=== PATIENT | male | born 1990 | race African-American/Black ===

== ENCOUNTER 2017-01-06 04:42 | Emergency (ER) | payer MEDICAID ==
[~2017-01-06] VITALS: Ht 190.5 cm; Wt 83.9 kg
[2017-01-06 04:45] VITALS: BP 117/84
[2017-01-06] MEDS ORDERED: ALBUTEROL FS 2.5 MG/3 ML VIAL.NEB ONE (04:59)
[2017-01-06] MEDS ORDERED: ALBUTEROL FS 2.5 MG/3 ML VIAL.NEB CONTNEB ONE (05:00)
== END 2017-01-06 05:51 | disposition home or self-care (01) ==
LOC: ER 04:47
DX: R05 Cough (principal)
CPT/HCPCS: 71010; 87804 ×2; 94640; 99285; A4606; Z7610; 87400

== ENCOUNTER 2017-01-10 19:38 | Emergency (ER) | payer MEDICAID ==
[~2017-01-10] VITALS: Ht 190.5 cm; Wt 83.9 kg
[2017-01-10 19:50] VITALS: BP 133/85
[2017-01-10] MEDS ORDERED: IPRATROPIUM NEB FS 0.5 MG/2.5 ML AMPUL.NEB ONE (20:13)
[2017-01-10] MEDS ORDERED: ALBUTEROL FS 2.5 MG/3 ML VIAL.NEB ONE (20:13)
[2017-01-10] MEDS ORDERED: TRAMADOL HCL 50 MG TABLET ONE (20:27)
[2017-01-10] MEDS ORDERED: predniSONE 20 MG TABLET ONE (20:27)
[2017-01-10] MEDS ORDERED: TRAMADOL HCL 50 MG TABLET PO ONE (20:30)
[2017-01-10] MEDS ORDERED: IPRATROPIUM NEB FS 0.5 MG/2.5 ML AMPUL.NEB NEB ONE (20:30)
[2017-01-10] MEDS ORDERED: predniSONE 20 MG TABLET PO ONE (20:30)
[2017-01-10] MEDS ORDERED: ALBUTEROL FS 2.5 MG/3 ML VIAL.NEB NEB ONE (20:30)
== END 2017-01-10 21:00 | disposition home or self-care (01) ==
LOC: ER 19:39
DX: S39.011A Strain of muscle, fascia and tendon of abdomen, initial encounter (principal); J20.9 Acute bronchitis, unspecified; X58.XXXA Exposure to other specified factors, initial encounter; Y93.89 Activity, other specified; Y92.89 Other specified places as the place of occurrence of the external cause; Y99.9 Unspecified external cause status
CPT/HCPCS: A4606; Z7610

== ENCOUNTER 2017-06-11 15:55 | Emergency (ER) | payer SELFPAY ==
[~2017-06-11] VITALS: Ht 188 cm; Wt 81.6 kg
--- NOTE | 2017-06-11 16:29 | NUR ---
NAUSEA AND VOMITING THIS AM AFTER DRINKING ALCOHOL LAST NIGHT
[2017-06-11] MEDS ORDERED: ONDANSETRON HCL/PF 4 MG/2 ML VIAL ONE (16:38)
[2017-06-11 16:45] LABS: BASOPHILS # (AUTO) 0.1 /CMM (0.0-0.2); BASOPHILS % (AUTO) 0.6 % (0.0-2.0); EOSINOPHILS # (AUTO) 0.1 /CMM (0.0-0.7); HEMATOCRIT 46 % (39-51); LYMPHOCYTES # (AUTO) 1.8 /CMM (0.8-4.8); MEAN CORPUSCULAR HEMOGLOBIN 31 PG (26.0-33.0); MEAN CORPUSCULAR HGB CONC 33 g/dl (31.0-36.0); MEAN CORPUSCULAR VOLUME 93 fL (80-96); MONOCYTES # (AUTO) 0.6 /CMM (0.1-1.30); MONOCYTES % (AUTO) 5.2 % (2.0-12.0); NEUTROPHILS # (AUTO) 8.9 /CMM (1.8-8.9); NEUTROPHILS % (AUTO) 77.2 % (43.0-81.0); PLATELET COUNT (AUTO) 300 /CMM (150-450); RDW COEFFICIENT OF VARIATION 12.8 (11.5-15.0); WHITE BLOOD COUNT (AUTO) 11.5 K/uL (4.3-11.0)
[2017-06-11] MEDS: IV NS 0.9% 1,000 ML BAG IV ONE (16:46)
[2017-06-11] MEDS: ONDANSETRON HCL/PF 4 MG/2 ML VIAL IVP ONE (16:46)
[2017-06-11 16:54] LABS: CALCIUM, SERUM 9.1 mg/dL (8.5-10.1); CREATININE 1.1 mg/dL (0.6-1.3); POTASSIUM 4.1 mmol/L (3.5-5.1)
[2017-06-11 17:00] LABS: ALBUMIN 4.5 g/dL (3.4-5.0); BILIRUBIN,DIRECT 0.2 mg/dL (0.0-0.2); BILIRUBIN,TOTAL 0.7 mg/dL (0.2-1.0)
--- NOTE | 2017-06-11 17:11 | NUR ---
URINE SAMPLE COLLECTED, SENT TO LAB
--- NOTE | 2017-06-11 17:21 | NUR ---
IV removed. Catheter intact and site benign. Pressure and 4x4 applied to site. No bleeding noted.
--- NOTE | 2017-06-11 17:21 | NUR ---
Patient discharged to home in stable condition. Written and verbal after care instructions given. Patient verbalizes understanding of instruction.
[2017-06-11 17:22] VITALS: BP 151/74
[2017-06-11 17:30] LABS: APPEARANCE,URINE Clear (CLEAR); BILIRUBIN,URINE Negative (NEGATIVE); BLOOD, URINE Negative Ery/uL (NEGATIVE); COLOR,URINE Yellow (YELLOW); KETONES,URINE Negative (NEGATIVE); LEUKOCYTE ESTERASE ,URINE Negative (NEGATIVE); NITRITE, URINE Negative (NEGATIVE); PH,URINE 8.5 (5.0-8.0); PROTEIN,URINE Negative (NEGATIVE); UGLUCOSE Negative (NEGATIVE); UROBILINOGEN,URINE 0.2 EU/dL (0.2)
== END 2017-06-11 17:22 | disposition home or self-care (01) ==
LOC: ER 15:58
DX: R11.2 Nausea with vomiting, unspecified (principal); F10.10 Alcohol abuse, uncomplicated
CPT/HCPCS: 36415; 80048-TC; 80076-TC; 81000-TC; 83690-TC; 85025-TC; A4606; J2405; J7030; Z7610

== ENCOUNTER 2017-10-24 11:11 | Emergency (ER) | payer SELFPAY ==
[~2017-10-24] VITALS: Ht 190.5 cm; Wt 81.6 kg
[2017-10-24 11:11] VITALS: BP 136/90
== END 2017-10-24 14:04 | disposition home or self-care (01) ==
LOC: ER 11:13
DX: M26.69 Other specified disorders of temporomandibular joint (principal); F41.9 Anxiety disorder, unspecified; H92.02 Otalgia, left ear; K59.00 Constipation, unspecified
CPT/HCPCS: 99284; A4606; Z7610

== ENCOUNTER 2017-12-19 08:21 | Emergency (ER) | payer BC ==
[~2017-12-19] VITALS: Ht 190.5 cm; Wt 88.5 kg
[2017-12-19 08:28] VITALS: BP 140/82
== END 2017-12-19 13:02 | disposition home or self-care (01) ==
LOC: ER 08:23
DX: H61.21 Impacted cerumen, right ear (principal); F41.9 Anxiety disorder, unspecified; F10.10 Alcohol abuse, uncomplicated
CPT/HCPCS: A4606; Z7610

== ENCOUNTER 2018-01-02 13:30 | Emergency (ER) | payer BC ==
[~2018-01-02] VITALS: Ht 190.5 cm; Wt 88.5 kg
[2018-01-02 14:04] VITALS: BP 139/92
== END 2018-01-02 15:02 | disposition home or self-care (01) ==
LOC: ER 13:33
DX: S60.221A Contusion of right hand, initial encounter (principal); F41.9 Anxiety disorder, unspecified; Z60.2 Problems related to living alone; X58.XXXA Exposure to other specified factors, initial encounter; Y93.89 Activity, other specified; Y92.89 Other specified places as the place of occurrence of the external cause; Y99.8 Other external cause status
CPT/HCPCS: 73130-TC; A4606; Z7610

== ENCOUNTER 2018-01-06 19:33 | Emergency (ER) | payer BC ==
--- NOTE | 2018-01-06 19:35 | NUR ---
DURING TRIAGE ASSESSMENT, PATIENT SAID HE DOES NOT WANT TO BE SEEN BY A MD. HE STATES HE ONLY CHECKED IN BECAUSE HE WAS HERE WITH HIS GIRL FRIEND. PATIENT THEN WENT TO BED SIDE OF GIRLFRIEND.
== END 2018-01-06 19:40 | disposition left against medical advice (07) ==
LOC: ER 19:35
DX: M79.646 Pain in unspecified finger(s) (principal); Z53.21 Procedure and treatment not carried out due to patient leaving prior to being seen by health care provider

== ENCOUNTER 2018-04-03 14:10 | Emergency (ER) | payer BC ==
[~2018-04-03] VITALS: Ht 190.5 cm; Wt 86.2 kg
[2018-04-03 14:23] VITALS: BP 137/95
--- NOTE | 2018-04-03 14:30 | NUR ---
Pt BIB self. Complaining of epigastric pain s/p "drank last night". Denies NVD. Patient resting comfortably in rney. NAD noted.
[2018-04-03] MEDS ORDERED: PANTOPRAZOLE 40 MG TABLET.DR PO STA (14:40)
[2018-04-03] MEDS ORDERED: LIDOCAINE VISCOUS 2% UD 15 ML UDC ONE (14:45)
[2018-04-03] MEDS ORDERED: PANTOPRAZOLE 40 MG TABLET.DR PO ONE (14:45)
[2018-04-03] MEDS ORDERED: FAMOTIDINE (20 MG) 20 MG TABLET ONE (14:45)
[2018-04-03] MEDS ORDERED: MAG HYDROX/AL HYDROX/SIMETH 30 ML UDC ONE (14:45)
[2018-04-03] MEDS ORDERED: FAMOTIDINE (20 MG) 20 MG TABLET PO ONE (15:00)
[2018-04-03] MEDS ORDERED: LIDOCAINE VISCOUS 2% UD 15 ML UDC MM ONE (15:00)
[2018-04-03] MEDS ORDERED: MAG HYDROX/AL HYDROX/SIMETH 30 ML UDC PO ONE (15:00)
--- NOTE | 2018-04-03 15:27 | NUR ---
Patient discharged to home in stable condition. Written and verbal after care instructions given. Patient verbalizes understanding of instruction. AMBULATORY STEADY GAIT
== END 2018-04-03 15:28 | disposition home or self-care (01) ==
LOC: ER 14:11
DX: K29.00 Acute gastritis without bleeding (principal); K21.9 Gastro-esophageal reflux disease without esophagitis; F41.9 Anxiety disorder, unspecified; Z60.2 Problems related to living alone
CPT/HCPCS: 74022; 99284; A4606; Z7610